=== PATIENT | male | born 2000 | race Hispanic/Latino ===

== ENCOUNTER 2019-11-24 21:32 | Emergency (ER) | payer SELFPAY ==
[~2019-11-24] VITALS: Ht 170.2 cm; Wt 68.9 kg
== END 2019-11-24 22:52 | disposition home or self-care (01) ==
LOC: ER 21:32
DX: S00.93XA Contusion of unspecified part of head, initial encounter (principal); V43.52XA Car driver injured in collision with other type car in traffic accident, initial encounter; Y92.488 Other paved roadways as the place of occurrence of the external cause
CPT/HCPCS: 99282